=== PATIENT | male | born 1970 | race Caucasian/White ===

== ENCOUNTER → 2020-11-25 09:38 | Outpatient (CLI) | payer OTHER, SELFPAY ==
[2020-11-25] MEDS: COVID-19 VACC #1, MRNA(MOD) 100 MCG/0.5 ML VIAL IM (09:42)
== END ==
PROVIDERS: Visit Provider Internal Medicine
DX: Z23 Encounter for immunization (principal)
CPT/HCPCS: 0011A; 91301

== ENCOUNTER → 2020-12-23 12:02 | Outpatient (CLI) | payer OTHER, SELFPAY ==
[2020-12-23] MEDS: COVID-19 VACC #2, MRNA(MOD) 100 MCG/0.5 ML VIAL IM (12:08)
== END ==
PROVIDERS: Visit Provider Internal Medicine
DX: Z23 Encounter for immunization (principal)
CPT/HCPCS: 0012A; 91301

== ENCOUNTER 2021-08-13 11:39 | Emergency (ER) | payer OTHER, SELFPAY ==
[2021-08-13] VITALS (11 sets, daily range): BP systolic 121–147; BP diastolic 86–99; PULSE 62–99; RESP 13–18; TEMP 36.6; O2SAT 95–98; BMI 25.8
--- NOTE | 2021-08-13 11:48 | DI.RAD.S_ITS ---
PROCEDURE: XR CHEST 1V INDICATIONS: chest pain TECHNIQUE: One view of the chest was acquired. COMPARISON: None. FINDINGS: Surgical changes and devices: None. Lungs and pleura: Lungs are clear. No pleural effusions or pneumothorax. Mediastinum: Mediastinal contours appear normal. Heart size is normal. Bones and chest wall: No suspicious bony lesions. Overlying soft tissues appear unremarkable. IMPRESSION: No acute cardiopulmonary abnormality. Dictated by: Dillon Collins M.D. on 08/13/2021 at 12:13 Approved by: Dillon Collins M.D. on 08/13/2021 at 12:15
[2021-08-13 12:17] LABS: Add Manual Diff / Slide Review NO; Basophils Absolute Auto 100 /uL (0-100); Basophils Percent Auto 1.1 % (0-2); Eosinophils Absolute Auto 100 /uL (0-450); Eosinophils Percent Auto 2.4 % (2-4); Hematocrit 45.4 % (41-53); Hemoglobin 15.9 g/dL (13.5-17.5); Lymphocytes Absolute Auto 1000 /uL (1100-4500); Lymphocytes Percent Auto 20.7 % (25-40); Mean Corpuscular HGB Conc 35.1 % (30-36); Mean Corpuscular Volume 94.1 fL (80-100); Monocytes Absolute Auto 300 /uL (0-900); Monocytes Percent Auto 7.2 % (3-14); Neutrophils Absolute Auto 3200 /uL (1500-7000); Neutrophils Percent Auto 68.6 % (50-75); Platelet Count 224 X10^3/uL (150-400); Red Blood Cell Count 4.82 X10^6/uL (4.5-5.9); Red Cell Distribution Width 12.5 % (11.6-14.8); White Blood Cell Count 4.7 X10^3/uL (4.5-11.0)
[2021-08-13 12:26] LABS: Alanine Aminotransferase 29 IU/L (<50); Albumin 4.7 g/dL (3.5-5.0); Albumin Globulin Ratio 1.7 (1.0-2.8); Alkaline Phosphatase 72 U/L (38-126); Aspartate Aminotransferase 30 IU/L (17-59); BUN Creatinine Ratio 16.4 (6-22); Bilirubin Total 0.5 mg/dL (0.2-1.3); Blood Urea Nitrogen 12 mg/dL (9-20); Calcium 9.7 mg/dL (8.4-10.2); Carbon Dioxide 24 mmol/L (22-32); Chloride 105 mmol/L (98-107); Creatine Kinase 68 U/L (55-170); Estimated Glomerular Filt Rate > 60.0 mL/min (>60); Globulin 2.7 g/dL (1.7-4.1); Glucose 116 mg/dL (70-100); HEMOLYSIS < 15 (0-50); Lipase 121 U/L (23-300); Potassium 4.4 mmol/L (3.4-5.1); Sodium 139 mmol/L (137-145); Total Protein 7.4 g/dL (6.3-8.2)
[2021-08-13 12:37] LABS: Troponin I < 0.012 ng/mL (0.01-0.034)
--- NOTE | 2021-08-13 17:10 | ED_ITS ---
HPI - Chest Pain General Chief Complaint: Chest Pain Stated Complaint: CHEST PAIN/TIGHTNESS/SOB Time Seen by Provider: 08/13/21 17:10 Source: patient Mode of arrival: Ambulatory Limitations: no limitations History of Present Illness HPI narrative: 51-year-old gentleman pack-a-day smoker with PTSD but no additional medical history presents after an episode of chest pain this morning. States that he was talking with [facility], there the providers helping him with his PTSD, a bit anxious about some upcoming workup plans traveling to [place] and notes increasing psychosocial stressors over the last week or so. Was walking in his living room when he had the acute onset of substernal chest tightness not associated with numbness tingling left arm pain jaw pain dyspnea or diaphoresis. It lasted approximately 10 minutes and resolved. He had a cousin who was recently diagnosed with multivessel cardiac disease with similar finding so he came in for further reassurance. He has had no recurrence of symptoms since being in the emergency department. He does note he has been more anxious recently he has been having increasing diarrhea that he attributes to the anxiety and issues surrounding his PTSD. He has not had specific abdominal pain, vomiting, headaches, acute neurologic findings. Despite smoking a pack-a-day is no specific cough or wheeze and he denies any recent fevers. Related Data Allergies Allergy/AdvReac Type Severity Reaction Status Date / Time No Known Drug Allergies Allergy Verified 08/13/21 11:46 Review of Systems Review of Systems Narrative: Remainder of complete review of systems is otherwise unremarkable except for that included in the HPI. Patient History Medical History PTSD (post-traumatic stress disorder) Smoker Social History Smoking Status: Unknown if ever smoked Smoking Status: Unknown if ever smoked alcohol intake frequency: a few times a week Substance Use Type: does not use Exam Narrative Exam Narrative: General: Healthy appearing, in no acute distress. Able to give a complete and coherent history. Well-nourished well-developed HEENT: Moist mucous membranes, normal sclera with reactive pupils, Neck: No JVD, supple Respiratory: Lungs are clear to auscultation, no wheezing no rales no rhonchi. Full and symmetrical air movement Cardiac: Regular rate and rhythm no murmurs no bruits Abdomen: Soft, nontender, good bowel tones, no flank pain Skin: Warm and dry, no rashes Neurologic: Grossly neurologically intact with no obvious asymmetries or abnormalities Extremities: No trauma, well perfused Psych: Cooperative, appropriate insight and affect Initial Vital Signs Initial Vital Signs: Vital Signs Temperature 97.8 F 08/13/21 11:43 Pulse Rate 99 H 08/13/21 11:43 Respiratory Rate 14 08/13/21 11:43 Blood Pressure 147/94 H 08/13/21 11:43 Pulse Oximetry 98 08/13/21 11:43 Course Orders Ordered: ED Orders 08/13/21 11:48 XR chest 1V Stat EKG-12 Lead Stat 08/13/21 11:53 Complete Blood Count AUTO DIFF Stat Comprehensive Metabolic Panel Stat Lipase Stat Troponin & CK Cardiac Panel Stat Vital Signs Vital signs: Vital Signs - 8 hr 08/13/21 11:43 08/13/21 14:27 08/13/21 14:28 Temperature 97.8 F Pulse Rate 99 H 65 64 Respiratory Rate 14 18 13 Blood Pressure 147/94 H 134/90 Pulse Oximetry 98 95 96 08/13/21 14:30 08/13/21 15:00 08/13/21 15:20 Temperature Pulse Rate 65 65 Respiratory Rate 13 15 Blood Pressure 137/99 H Pulse Oximetry 96 95 08/13/21 15:30 08/13/21 15:34 08/13/21 16:00 Temperature Pulse Rate 65 68 62 Respiratory Rate 18 14 15 Blood Pressure 137/99 H 129/89 Pulse Oximetry 95 96 96 08/13/21 16:30 Temperature Pulse Rate 62 Respiratory Rate 14 Blood Pressure 121/86 Pulse Oximetry 96 MDM - Chest Pain Lab Data Result diagrams: 08/13/21 11:53 08/13/21 11:53 Labs: Lab Results 08/13/21 08/13/21 Range/Units 11:53 11:53 WBC 4.7 (4.5-11.0) X10^3/uL RBC 4.82 (4.5-5.9) X10^6/uL Hgb 15.9 (13.5-17.5) g/dL Hct 45.4 (41-53) % MCV 94.1 (80-100) fL MCH 33.0 (26-34) PG MCHC 35.1 (30-36) % RDW 12.5 (11.6-14.8) % Plt Count 224 (150-400) X10^3/uL Neut % (Auto) 68.6 (50-75) % Lymph % (Auto) 20.7 L (25-40) % Wood % (Auto) 7.2 (3-14) % Eos % (Auto) 2.4 (2-4) % Baso % (Auto) 1.1 (0-2) % Neut # (Auto) 3200 (5891-9178) /uL Lymph # (Auto) 1000 L (4905-0433) /uL Wood # (Auto) 300 (0-900) /uL Eos # (Auto) 100 (0-450) /uL Baso # (Auto) 100 (0-100) /uL Sodium 139 (137-145) mmol/L Potassium 4.4 (3.4-5.1) mmol/L Chloride 105 (98-107) mmol/L Carbon Dioxide 24 (22-32) mmol/L BUN 12 (9-20) mg/dL Creatinine 0.73 (0.66-1.25) mg/dL Estimated GFR > 60.0 (>60) mL/min BUN/Creatinine Ratio 16.4 (6-22) Glucose 116 H (70-100) mg/dL Calcium 9.7 (8.4-10.2) mg/dL Total Bilirubin 0.5 (0.2-1.3) mg/dL AST 30 (17-59) IU/L ALT 29 (<50) IU/L Alkaline Phosphatase 72 (38-126) U/L Total Creatine Kinase 68 (55-170) U/L CK-MB (CK-2) TNP CK-MB (CK-2) Rel Index TNP Troponin I < 0.012 (0.01-0.034) ng/mL Total Protein 7.4 (6.3-8.2) g/dL Albumin 4.7 (3.5-5.0) g/dL Globulin 2.7 (1.7-4.1) g/dL Albumin/Globulin Ratio 1.7 (1.0-2.8) Lipase 121 (23-300) U/L ECG Data Interpretation: FINDINGS:? ? Surgical changes and devices:? None.? ? Lungs and pleura:? Lungs are clear.? No pleural effusions or pneumothorax.? ? Mediastinum:? Mediastinal contours appear normal.? Heart size is normal.? ? Bones and chest wall:? No suspicious bony lesions.? Overlying soft tissues appear unremarkable.? ? IMPRESSION:? No acute cardiopulmonary abnormality. ? ? Dictated by: Dillon Collins M.D. on 08/13/2021 at 12:13? ?? [facility] Narrative Medical decision making narrative: 51-year-old gentleman presents with 10-15 minutes of substernal chest pain associated with chest tightness. Workup today is entirely unremarkable for acute coronary syndrome. Chest x-ray is reassuring. No evidence of infectious etiology, pneumothorax or pleuritic chest pain. He does note that his PTSD has been more of an issue as he is working with his [facility], increased stressors recently with work plans that are developing positively but the require some more effort. He feels that this is most likely a panic attack after having plenty of time in the emergency department to do a bit of googling. At this time, I agree with him. His heart score is low. Symptoms have entirely resolved. We did discuss smoking a pack-a-day is a significant risk factor for progressing to true coronary disease. He has appropriate follow-up care as an outpatient scheduled and is safe for home discharge Discharge Plan Departure Patient Disposition: Home Clinical Impression: Atypical chest pain Instructions: DI for Atypical Chest Pain, DI for Panic Disorder Activity Restrictions/Additional Instructions: Thank you for coming in today Your cardiac workup was very reassuring. Chest x-ray, EKG, blood work and exam all suggest that the pain you experienced today was not heart attack. Smoking is a significant risk factor for developing true heart disease and I strongly recommend that you stop I suspect that you are correct that your anxiety precipitated a panic attack and that is the underlying cause of the pain you experienced today. Please do continue to work with your [place] doctors and I wish you the best in learning some coping skills to best manage your stress and anxiety. If you have worsening symptoms particularly chest pain that is associated with any radiation down the arm up to the neck, nauseated or sweating you do need to come in for further evaluation I hope you enjoyed [place]!
== END 2021-08-13 17:37 | disposition home or self-care (01) ==
PROVIDERS: Emergency Provider Emergency Medicine
DX: R07.89 Other chest pain (principal); F43.10 Post-traumatic stress disorder, unspecified
CPT/HCPCS: 36415; 71045; 80053; 82550; 83690; 84484; 85025; 93005; 93010; 99283; 99284

== ENCOUNTER 2023-01-16 05:46 | Emergency (ER) | payer OTHER, SELFPAY ==
[2023-01-16] VITALS (59 sets, daily range): BP systolic 127–188; BP diastolic 68–115; PULSE 69–92; RESP 10–51; O2SAT 90–100; BMI 23.6
--- NOTE | 2023-01-16 05:56 | ED_ITS ---
HPI - Chest Pain <Viktor Dhillon, DO - Last Filed: 01/16/23 12:06> General Chief Complaint: Chest Pain Stated Complaint: chest pain Time Seen by Provider: 01/16/23 05:56 Related Data Allergies Allergy/AdvReac Type Severity Reaction Status Date / Time No Known Drug Allergies Allergy Verified 08/13/21 11:46 <Arturo Hodge, DO - Last Filed: 01/17/23 14:18> General Source: patient Mode of arrival: Ambulatory History of Present Illness HPI narrative: 52-year-old male smoker without any significant chronic medical history presents with his father and a chief complaint of a sudden onset retrosternal chest pain that woke him from sleep 15 minutes prior to his arrival. He states that he had been in his normal state of health until awoken with this pain. He states he has never had such significant pain and rates it 10/10 with radiation to his back. He states there is no obvious provocation or palliation and the pain had improved on its own while getting registered and when brought into the room he rates it as a 3 or 4 When the pain was at its most intense he had some nausea but otherwise denies other cardiac equivalent such as dizziness, weakness or lightheadedness. He is had no unexplained diaphoresis and denies any exertional symptoms. He states he is had no exercise intolerance and denies any history of the same. He denies recent travel, trauma or injury, history of blood clot or known cancer. He denies any cough or hemoptysis. He has had no lower extremity pain or swelling. There is no known cardiac history in his family. <Arturo Naveen, DO - Last Filed: 01/17/23 14:18> Review of Systems Narrative: GENERAL: Denies chills, fatigue, malaise, fever, sweats. HEENT: Denies sinus pain, ear pain, sore throat, difficulty swallowing, dizziness. RESPIRATORY: Denies dyspnea, cough, wheezing, hemoptysis, sputum. CARDIOVASCULAR: See HPI GASTROINTESTINAL: Denies nausea, vomiting, abdominal pain, diarrhea, constipation, melena. : Denies dysuria, frequency, incontinence, hematuria, urinary retention. MUSCULOSKELETAL: denies weakness, joint pain, or bony pain SKIN: Denies rash, skin lesions, or other NEUROLOGIC: Denies weakness, headache, numbness, change in speech, confusion, seizures, incoordination. PSYCHIATRIC: No concerning psychosocial issues. 12 point review of systems is negative except for those stated above Patient History <Viktor Dhillon DO - Last Filed: 01/16/23 12:06> Medical History PTSD (post-traumatic stress disorder) Smoker Social History Smoking Status: Current every day smoker <Arturo Hodge DO - Last Filed: 01/17/23 14:18> Smoking Status: Current every day smoker alcohol intake frequency: a few times a week Substance Use Type: does not use Exam <Viktor Dhillon DO - Last Filed: 01/16/23 12:06> Initial Vital Signs Initial Vital Signs: Vital Signs Pulse Rate 77 01/16/23 05:50 Respiratory Rate 37 H 01/16/23 05:50 Pulse Oximetry 100 01/16/23 05:50 <Arturo Hodge DO - Last Filed: 01/17/23 14:18> Narrative Exam Narrative: GENERAL: [52] year old patient appears stated age. Well-developed patient, in mild distress. HEAD: Atraumatic. Normocephalic. EYES: Pupils equal round and reactive. Extraocular motions intact. No scleral icterus. No injection or drainage. ENT: Nose without bleeding, purulent drainage. Throat without erythema, tonsillar hypertrophy or exudate. Airway patent. NECK: Trachea midline. Non tender CARDIOVASCULAR: Regular rate and rhythm without murmurs, gallops, or rubs. No reproducible pain on palpation of chest, upper abdomen or use of upper extremities RESPIRATORY: Clear to auscultation. Breath sounds equal bilaterally. No wheezes, rales, or rhonchi. GASTROINTESTINAL: Abdomen soft, non-tender, nondistended. EXTREMITIES: No edema or joint tenderness. BACK: Nontender without deformity or crepitance. No flank tenderness. NEURO: AOx3. SKIN: No rash or erythema of visible areas Initial Vital Signs Initial Vital Signs: Vital Signs Pulse Rate 77 01/16/23 05:50 Respiratory Rate 37 H 01/16/23 05:50 Pulse Oximetry 100 01/16/23 05:50 Course <DO Chapito Vu Last Filed: 01/16/23 12:06> Orders Ordered: Discontinued Medications Aspirin (Aspirin 81 Mg Chew Tab) 324 mg PO NOW ONE Stop: 01/16/23 05:57 Last Admin: 01/16/23 06:14 Dose: 324 mg Documented By: LUCY Heparin Sodium (Porcine) (Heparin 5,000 Unit/Ml Vial) 5,000 unit IV NOW ONE Stop: 01/16/23 07:04 Last Admin: 01/16/23 07:46 Dose: 5,000 unit Documented By: NO Sodium Chloride (Normal Saline 0.9%) 1,000 mls @ 1,000 mls/hr IV BOLUS ONE Stop: 01/16/23 06:55 Last Infusion: 01/16/23 07:59 Dose: 0 mls/hr Documented By: Admin: 01/16/23 06:14 Dose: 1,000 mls/hr Documented By: LUCY Heparin Sodium/Dextrose (Heparin Drip) 25,000 unit in 500 mls @ 20 mls/hr IV CONT CRISTHIAN; Protocol Last Titration: 01/16/23 12:00 Dose: 0 units/hr, 0 mls/hr Documented By: Admin: 01/16/23 07:46 Dose: 1,000 units/hr, 20 mls/hr Documented By: NO Morphine Sulfate (Morphine 4 Mg/Ml Inj) 4 mg IV NOW ONE Stop: 01/16/23 06:47 Last Admin: 01/16/23 06:50 Dose: 4 mg Documented By: LARRY Morphine Sulfate (Morphine 4 Mg/Ml Inj) 4 mg IV NOW ONE Stop: 01/16/23 07:41 Last Admin: 01/16/23 07:55 Dose: 4 mg Documented By: NO Nitroglycerin (Nitroglycerin 0.4 Mg Sl Tab) 0.4 mg SL [id number] PRN PRN Reason: Chest Pain Last Admin: 01/16/23 06:34 Dose: 0.4 mg Documented By: Admin: 01/16/23 06:14 Dose: 0.4 mg Documented By: LUCY Ondansetron HCl (Ondansetron 4 Mg/2 Ml Inj) 4 mg IV NOW ONE Stop: 01/16/23 07:36 Last Admin: 01/16/23 07:38 Dose: 4 mg Documented By: NO Ondansetron HCl (Ondansetron 4 Mg/2 Ml Inj) 4 mg IV NOW ONE Stop: 01/16/23 07:41 Last Admin: 01/16/23 10:20 Dose: Not Given Documented By: AT Vital Signs Vital signs: Vital Signs - 8 hr 01/16/23 05:51 01/16/23 06:14 01/16/23 06:34 Pulse Rate 78 72 80 Respiratory Rate 30 H Blood Pressure 157/90 H 182/112 H 155/89 H Pulse Oximetry 100 Oxygen Delivery Method Room Air Oxygen Flow Rate 01/16/23 05:50 01/16/23 06:00 01/16/23 06:00 Pulse Rate 77 77 Respiratory Rate 37 H 32 H Blood Pressure 182/115 H Pulse Oximetry 100 99 Oxygen Delivery Method Oxygen Flow Rate 01/16/23 06:20 01/16/23 06:20 01/16/23 06:35 Pulse Rate 71 83 Respiratory Rate 10 L 29 H Blood Pressure 156/107 H Pulse Oximetry 96 95 Oxygen Delivery Method Oxygen Flow Rate 01/16/23 06:36 01/16/23 06:36 01/16/23 06:40 Pulse Rate 80 77 Respiratory Rate 28 H 14 Blood Pressure 155/89 H Pulse Oximetry 96 96 Oxygen Delivery Method Oxygen Flow Rate 01/16/23 06:40 01/16/23 06:45 01/16/23 06:45 Pulse Rate 86 Respiratory Rate 51 H Blood Pressure 149/87 H 169/106 H Pulse Oximetry 99 Oxygen Delivery Method Oxygen Flow Rate 01/16/23 06:50 01/16/23 06:50 01/16/23 08:30 Pulse Rate 79 Respiratory Rate 34 H Blood Pressure 148/87 H Pulse Oximetry 98 99 Oxygen Delivery Method Nasal Cannula Oxygen Flow Rate 2 01/16/23 06:55 01/16/23 06:55 01/16/23 07:00 Pulse Rate 77 Respiratory Rate 34 H Blood Pressure 145/87 H 143/77 H Pulse Oximetry 98 Oxygen Delivery Method Oxygen Flow Rate 01/16/23 07:00 01/16/23 07:05 01/16/23 07:05 Pulse Rate 69 70 Respiratory Rate 14 28 H Blood Pressure 146/81 H Pulse Oximetry 94 95 Oxygen Delivery Method Oxygen Flow Rate 01/16/23 07:11 01/16/23 07:11 01/16/23 07:16 Pulse Rate 76 Respiratory Rate 14 Blood Pressure 138/81 160/102 H Pulse Oximetry 94 Oxygen Delivery Method Oxygen Flow Rate 01/16/23 07:16 01/16/23 07:20 01/16/23 07:20 Pulse Rate 75 78 Respiratory Rate 42 H 44 H Blood Pressure 188/103 H Pulse Oximetry 98 99 Oxygen Delivery Method Oxygen Flow Rate 01/16/23 07:25 01/16/23 07:25 01/16/23 07:30 Pulse Rate 82 81 Respiratory Rate 35 H 36 H Blood Pressure 186/112 H Pulse Oximetry 99 98 Oxygen Delivery Method Oxygen Flow Rate 01/16/23 07:31 01/16/23 07:31 01/16/23 07:36 Pulse Rate 81 Respiratory Rate 45 H Blood Pressure 166/83 H 172/110 H Pulse Oximetry 98 Oxygen Delivery Method Oxygen Flow Rate 01/16/23 07:36 01/16/23 07:41 01/16/23 07:41 Pulse Rate 82 78 Respiratory Rate 48 H 32 H Blood Pressure 175/105 H Pulse Oximetry 98 99 Oxygen Delivery Method Oxygen Flow Rate 01/16/23 07:45 01/16/23 07:45 01/16/23 07:50 Pulse Rate 69 Respiratory Rate 17 Blood Pressure 156/78 H 158/89 H Pulse Oximetry 96 Oxygen Delivery Method Oxygen Flow Rate 01/16/23 07:50 01/16/23 07:55 01/16/23 07:55 Pulse Rate 71 70 Respiratory Rate 29 H 14 Blood Pressure 156/89 H Pulse Oximetry 96 94 Oxygen Delivery Method Oxygen Flow Rate 01/16/23 08:00 01/16/23 08:23 01/16/23 08:23 Pulse Rate 78 85 Respiratory Rate 17 16 Blood Pressure 145/80 H Pulse Oximetry 94 95 Oxygen Delivery Method Oxygen Flow Rate 01/16/23 08:25 01/16/23 08:25 01/16/23 08:30 Pulse Rate 77 Respiratory Rate 18 Blood Pressure 138/77 146/89 H Pulse Oximetry 97 Oxygen Delivery Method Oxygen Flow Rate 01/16/23 08:30 01/16/23 08:35 01/16/23 08:35 Pulse Rate 82 84 Respiratory Rate 20 19 Blood Pressure 147/94 H Pulse Oximetry 95 96 Oxygen Delivery Method Nasal Cannula Oxygen Flow Rate 2 01/16/23 08:40 01/16/23 08:40 01/16/23 08:45 Pulse Rate 81 82 Respiratory Rate 19 13 Blood Pressure 135/83 Pulse Oximetry 95 96 Oxygen Delivery Method Oxygen Flow Rate 01/16/23 08:45 01/16/23 08:50 01/16/23 08:50 Pulse Rate 84 Respiratory Rate 13 Blood Pressure 129/81 140/81 Pulse Oximetry 96 Oxygen Delivery Method Oxygen Flow Rate 01/16/23 08:55 01/16/23 08:55 01/16/23 09:00 Pulse Rate 85 Respiratory Rate 14 Blood Pressure 135/76 128/73 Pulse Oximetry 96 Oxygen Delivery Method Oxygen Flow Rate 01/16/23 09:00 01/16/23 09:05 01/16/23 09:05 Pulse Rate 86 84 Respiratory Rate 17 11 L Blood Pressure 130/73 Pulse Oximetry 95 96 Oxygen Delivery Method Oxygen Flow Rate 01/16/23 09:10 01/16/23 09:10 01/16/23 09:15 Pulse Rate 84 86 Respiratory Rate 12 13 Blood Pressure 141/79 H Pulse Oximetry 96 96 Oxygen Delivery Method Nasal Cannula Oxygen Flow Rate 2 01/16/23 09:15 01/16/23 09:20 01/16/23 09:20 Pulse Rate 84 Respiratory Rate 13 Blood Pressure 133/79 134/77 Pulse Oximetry 96 Oxygen Delivery Method Oxygen Flow Rate 01/16/23 09:25 01/16/23 09:25 01/16/23 09:30 Pulse Rate 84 Respiratory Rate 15 Blood Pressure 135/78 138/80 Pulse Oximetry 96 Oxygen Delivery Method Oxygen Flow Rate 01/16/23 09:30 01/16/23 09:35 01/16/23 09:35 Pulse Rate 82 88 Respiratory Rate 11 L Blood Pressure 131/68 Pulse Oximetry 97 96 Oxygen Delivery Method Oxygen Flow Rate 01/16/23 10:00 01/16/23 10:30 01/16/23 10:47 Pulse Rate 87 85 Respiratory Rate 21 12 Blood Pressure 140/102 H Pulse Oximetry 97 97 Oxygen Delivery Method Nasal Cannula Room Air Oxygen Flow Rate 2 01/16/23 10:47 01/16/23 10:50 01/16/23 10:50 Pulse Rate 87 85 Respiratory Rate 25 H 22 Blood Pressure 141/105 H Pulse Oximetry 93 94 Oxygen Delivery Method Room Air Oxygen Flow Rate 01/16/23 10:55 01/16/23 10:55 01/16/23 11:00 Pulse Rate 84 Respiratory Rate 16 Blood Pressure 133/90 133/96 H Pulse Oximetry 93 Oxygen Delivery Method Oxygen Flow Rate 01/16/23 11:00 01/16/23 11:05 01/16/23 11:05 Pulse Rate 87 82 Respiratory Rate 23 12 Blood Pressure 127/76 Pulse Oximetry 94 94 Oxygen Delivery Method Oxygen Flow Rate 01/16/23 11:10 01/16/23 11:10 01/16/23 11:15 Pulse Rate 86 92 H Respiratory Rate 19 19 Blood Pressure 133/79 Pulse Oximetry 94 93 Oxygen Delivery Method Oxygen Flow Rate 01/16/23 11:15 01/16/23 11:20 01/16/23 11:20 Pulse Rate 84 Respiratory Rate 13 Blood Pressure 165/100 H 153/90 H Pulse Oximetry 92 Oxygen Delivery Method Oxygen Flow Rate 01/16/23 11:25 01/16/23 11:25 Pulse Rate 85 Respiratory Rate 13 Blood Pressure 149/98 H Pulse Oximetry 93 Oxygen Delivery Method Oxygen Flow Rate <Arturo Hodge DO - Last Filed: 01/17/23 14:18> Orders Ordered: Discontinued Medications Aspirin (Aspirin 81 Mg Chew Tab) 324 mg PO NOW ONE Stop: 01/16/23 05:57 Last Admin: 01/16/23 06:14 Dose: 324 mg Documented By: LUCY Heparin Sodium (Porcine) (Heparin 5,000 Unit/Ml Vial) 5,000 unit IV NOW ONE Stop: 01/16/23 07:04 Last Admin: 01/16/23 07:46 Dose: 5,000 unit Documented By: NO Sodium Chloride (Normal Saline 0.9%) 1,000 mls @ 1,000 mls/hr IV BOLUS ONE Stop: 01/16/23 06:55 Last Infusion: 01/16/23 07:59 Dose: 0 mls/hr Documented By: Admin: 01/16/23 06:14 Dose: 1,000 mls/hr Documented By: LUCY Heparin Sodium/Dextrose (Heparin Drip) 25,000 unit in 500 mls @ 20 mls/hr IV CONT CRISTHIAN; Protocol Last Titration: 01/16/23 12:00 Dose: 0 units/hr, 0 mls/hr Documented By: Admin: 01/16/23 07:46 Dose: 1,000 units/hr, 20 mls/hr Documented By: NO Morphine Sulfate (Morphine 4 Mg/Ml Inj) 4 mg IV NOW ONE Stop: 01/16/23 06:47 Last Admin: 01/16/23 06:50 Dose: 4 mg Documented By: LARRY Morphine Sulfate (Morphine 4 Mg/Ml Inj) 4 mg IV NOW ONE Stop: 01/16/23 07:41 Last Admin: 01/16/23 07:55 Dose: 4 mg Documented By: NO Nitroglycerin (Nitroglycerin 0.4 Mg Sl Tab) 0.4 mg SL [id number] PRN PRN Reason: Chest Pain Last Admin: 01/16/23 06:34 Dose: 0.4 mg Documented By: Admin: 01/16/23 06:14 Dose: 0.4 mg Documented By: LUCY Ondansetron HCl (Ondansetron 4 Mg/2 Ml Inj) 4 mg IV NOW ONE Stop: 01/16/23 07:36 Last Admin: 01/16/23 07:38 Dose: 4 mg Documented By: NO Ondansetron HCl (Ondansetron 4 Mg/2 Ml Inj) 4 mg IV NOW ONE Stop: 01/16/23 07:41 Last Admin: 01/16/23 10:20 Dose: Not Given Documented By: AT Reevaluation(s) Reevaluation #1: Is unclear if patient had any improvement with nitroglycerin, soon after returning from CT scan his pain became very severe again without obvious provocation. Repeat EKG ordered Vital Signs Vital signs: Vital Signs - 8 hr 01/16/23 05:51 01/16/23 06:14 01/16/23 06:34 Pulse Rate 78 72 80 Respiratory Rate 30 H Blood Pressure 157/90 H 182/112 H 155/89 H Pulse Oximetry 100 Oxygen Delivery Method Room Air Oxygen Flow Rate 01/16/23 05:50 01/16/23 06:00 01/16/23 06:00 Pulse Rate 77 77 Respiratory Rate 37 H 32 H Blood Pressure 182/115 H Pulse Oximetry 100 99 Oxygen Delivery Method Oxygen Flow Rate 01/16/23 06:20 01/16/23 06:20 01/16/23 06:35 Pulse Rate 71 83 Respiratory Rate 10 L 29 H Blood Pressure 156/107 H Pulse Oximetry 96 95 Oxygen Delivery Method Oxygen Flow Rate 01/16/23 06:36 01/16/23 06:36 01/16/23 06:40 Pulse Rate 80 77 Respiratory Rate 28 H 14 Blood Pressure 155/89 H Pulse Oximetry 96 96 Oxygen Delivery Method Oxygen Flow Rate 01/16/23 06:40 01/16/23 06:45 01/16/23 06:45 Pulse Rate 86 Respiratory Rate 51 H Blood Pressure 149/87 H 169/106 H Pulse Oximetry 99 Oxygen Delivery Method Oxygen Flow Rate 01/16/23 06:50 01/16/23 06:50 01/16/23 08:30 Pulse Rate 79 Respiratory Rate 34 H Blood Pressure 148/87 H Pulse Oximetry 98 99 Oxygen Delivery Method Nasal Cannula Oxygen Flow Rate 2 01/16/23 06:55 01/16/23 06:55 01/16/23 07:00 Pulse Rate 77 Respiratory Rate 34 H Blood Pressure 145/87 H 143/77 H Pulse Oximetry 98 Oxygen Delivery Method Oxygen Flow Rate 01/16/23 07:00 01/16/23 07:05 01/16/23 07:05 Pulse Rate 69 70 Respiratory Rate 14 28 H Blood Pressure 146/81 H Pulse Oximetry 94 95 Oxygen Delivery Method Oxygen Flow Rate 01/16/23 07:11 01/16/23 07:11 01/16/23 07:16 Pulse Rate 76 Respiratory Rate 14 Blood Pressure 138/81 160/102 H Pulse Oximetry 94 Oxygen Delivery Method Oxygen Flow Rate 01/16/23 07:16 01/16/23 07:20 01/16/23 07:20 Pulse Rate 75 78 Respiratory Rate 42 H 44 H Blood Pressure 188/103 H Pulse Oximetry 98 99 Oxygen Delivery Method Oxygen Flow Rate 01/16/23 07:25 01/16/23 07:25 01/16/23 07:30 Pulse Rate 82 81 Respiratory Rate 35 H 36 H Blood Pressure 186/112 H Pulse Oximetry 99 98 Oxygen Delivery Method Oxygen Flow Rate 01/16/23 07:31 01/16/23 07:31 01/16/23 07:36 Pulse Rate 81 Respiratory Rate 45 H Blood Pressure 166/83 H 172/110 H Pulse Oximetry 98 Oxygen Delivery Method Oxygen Flow Rate 01/16/23 07:36 01/16/23 07:41 01/16/23 07:41 Pulse Rate 82 78 Respiratory Rate 48 H 32 H Blood Pressure 175/105 H Pulse Oximetry 98 99 Oxygen Delivery Method Oxygen Flow Rate 01/16/23 07:45 01/16/23 07:45 01/16/23 07:50 Pulse Rate 69 Respiratory Rate 17 Blood Pressure 156/78 H 158/89 H Pulse Oximetry 96 Oxygen Delivery Method Oxygen Flow Rate 01/16/23 07:50 01/16/23 07:55 01/16/23 07:55 Pulse Rate 71 70 Respiratory Rate 29 H 14 Blood Pressure 156/89 H Pulse Oximetry 96 94 Oxygen Delivery Method Oxygen Flow Rate 01/16/23 08:00 01/16/23 08:23 01/16/23 08:23 Pulse Rate 78 85 Respiratory Rate 17 16 Blood Pressure 145/80 H Pulse Oximetry 94 95 Oxygen Delivery Method Oxygen Flow Rate 01/16/23 08:25 01/16/23 08:25 01/16/23 08:30 Pulse Rate 77 Respiratory Rate 18 Blood Pressure 138/77 146/89 H Pulse Oximetry 97 Oxygen Delivery Method Oxygen Flow Rate 01/16/23 08:30 01/16/23 08:35 01/16/23 08:35 Pulse Rate 82 84 Respiratory Rate 20 19 Blood Pressure 147/94 H Pulse Oximetry 95 96 Oxygen Delivery Method Nasal Cannula Oxygen Flow Rate 2 01/16/23 08:40 01/16/23 08:40 01/16/23 08:45 Pulse Rate 81 82 Respiratory Rate 19 13 Blood Pressure 135/83 Pulse Oximetry 95 96 Oxygen Delivery Method Oxygen Flow Rate 01/16/23 08:45 01/16/23 08:50 01/16/23 08:50 Pulse Rate 84 Respiratory Rate 13 Blood Pressure 129/81 140/81 Pulse Oximetry 96 Oxygen Delivery Method Oxygen Flow Rate 01/16/23 08:55 01/16/23 08:55 01/16/23 09:00 Pulse Rate 85 Respiratory Rate 14 Blood Pressure 135/76 128/73 Pulse Oximetry 96 Oxygen Delivery Method Oxygen Flow Rate 01/16/23 09:00 01/16/23 09:05 01/16/23 09:05 Pulse Rate 86 84 Respiratory Rate 17 11 L Blood Pressure 130/73 Pulse Oximetry 95 96 Oxygen Delivery Method Oxygen Flow Rate 01/16/23 09:10 01/16/23 09:10 01/16/23 09:15 Pulse Rate 84 86 Respiratory Rate 12 13 Blood Pressure 141/79 H Pulse Oximetry 96 96 Oxygen Delivery Method Nasal Cannula Oxygen Flow Rate 2 01/16/23 09:15 01/16/23 09:20 01/16/23 09:20 Pulse Rate 84 Respiratory Rate 13 Blood Pressure 133/79 134/77 Pulse Oximetry 96 Oxygen Delivery Method Oxygen Flow Rate 01/16/23 09:25 01/16/23 09:25 01/16/23 09:30 Pulse Rate 84 Respiratory Rate 15 Blood Pressure 135/78 138/80 Pulse Oximetry 96 Oxygen Delivery Method Oxygen Flow Rate 01/16/23 09:30 01/16/23 09:35 01/16/23 09:35 Pulse Rate 82 88 Respiratory Rate 11 L Blood Pressure 131/68 Pulse Oximetry 97 96 Oxygen Delivery Method Oxygen Flow Rate 01/16/23 10:00 01/16/23 10:30 01/16/23 10:47 Pulse Rate 87 85 Respiratory Rate 21 12 Blood Pressure 140/102 H Pulse Oximetry 97 97 Oxygen Delivery Method Nasal Cannula Room Air Oxygen Flow Rate 2 01/16/23 10:47 01/16/23 10:50 01/16/23 10:50 Pulse Rate 87 85 Respiratory Rate 25 H 22 Blood Pressure 141/105 H Pulse Oximetry 93 94 Oxygen Delivery Method Room Air Oxygen Flow Rate 01/16/23 10:55 01/16/23 10:55 01/16/23 11:00 Pulse Rate 84 Respiratory Rate 16 Blood Pressure 133/90 133/96 H Pulse Oximetry 93 Oxygen Delivery Method Oxygen Flow Rate 01/16/23 11:00 01/16/23 11:05 01/16/23 11:05 Pulse Rate 87 82 Respiratory Rate 23 12 Blood Pressure 127/76 Pulse Oximetry 94 94 Oxygen Delivery Method Oxygen Flow Rate 01/16/23 11:10 01/16/23 11:10 01/16/23 11:15 Pulse Rate 86 92 H Respiratory Rate 19 19 Blood Pressure 133/79 Pulse Oximetry 94 93 Oxygen Delivery Method Oxygen Flow Rate 01/16/23 11:15 01/16/23 11:20 01/16/23 11:20 Pulse Rate 84 Respiratory Rate 13 Blood Pressure 165/100 H 153/90 H Pulse Oximetry 92 Oxygen Delivery Method Oxygen Flow Rate 01/16/23 11:25 01/16/23 11:25 Pulse Rate 85 Respiratory Rate 13 Blood Pressure 149/98 H Pulse Oximetry 93 Oxygen Delivery Method Oxygen Flow Rate MDM - Chest Pain <Viktor Dhillon, - Last Filed: 01/16/23 12:06> Lab Data Attestation: I reviewed the patient's lab results. 01/16/23 05:55 01/16/23 05:55 Labs: Lab Results 01/16/23 01/16/23 01/16/23 Range/Units 05:55 05:55 05:55 WBC 8.9 (4.5-11.0) X10^3/uL RBC 5.27 (4.5-5.9) X10^6/uL Hgb 17.0 (13.5-17.5) g/dL Hct 49.2 (41-53) % MCV 93.4 (80-100) fL MCH 32.3 (26-34) PG MCHC 34.6 (30-36) % RDW 13.1 (11.6-14.8) % Plt Count 215 (150-400) X10^3/uL Neut % (Auto) 64.2 (50-75) % Lymph % (Auto) 23.7 L (25-40) % [place] % (Auto) 7.2 (3-14) % Eos % (Auto) 4.0 (2-4) % Baso % (Auto) 0.9 (0-2) % Neut # (Auto) 5700 (3787-5642) /uL Lymph # (Auto) 2100 (6370-4031) /uL [place] # (Auto) 600 (0-900) /uL Eos # (Auto) 400 (0-450) /uL Baso # (Auto) 100 (0-100) /uL APTT (26-36) SECONDS D-Dimer 309 (<500) ng/ml Sodium 138 (137-145) mmol/L Potassium 4.1 (3.4-5.1) mmol/L Chloride 101 (98-107) mmol/L Carbon Dioxide 32 (22-32) mmol/L BUN 14 (9-20) mg/dL Creatinine 1.15 (0.66-1.25) mg/dL Estimated GFR > 60 (>60) mL/min BUN/Creatinine Ratio 12.2 (6-22) Glucose 120 H (70-100) mg/dL Calcium 9.2 (8.4-10.2) mg/dL Total Bilirubin 0.4 (0.2-1.3) mg/dL AST 38 (17-59) IU/L ALT 32 (<50) IU/L Alkaline Phosphatase 86 (38-126) U/L Total Creatine Kinase 213 H (55-170) U/L CK-MB (CK-2) 2.90 H (<2.37) ng/mL CK-MB (CK-2) Rel Index 1.4 L (1.5-5.0) % Troponin I 0.279 H* (0.01-0.034) ng/mL Total Protein 6.9 (6.3-8.2) g/dL Albumin 4.0 (3.5-5.0) g/dL Globulin 2.9 (1.7-4.1) g/dL Albumin/Globulin Ratio 1.4 (1.0-2.8) Lipase 433 H (23-300) U/L SARS-CoV-2 (PCR) (Negative) 01/16/23 01/16/23 01/16/23 Range/Units 05:55 07:40 10:00 WBC (4.5-11.0) X10^3/uL RBC (4.5-5.9) X10^6/uL Hgb (13.5-17.5) g/dL Hct (41-53) % MCV (80-100) fL MCH (26-34) PG MCHC (30-36) % RDW (11.6-14.8) % Plt Count (150-400) X10^3/uL Neut % (Auto) (50-75) % Lymph % (Auto) (25-40) % [place] % (Auto) (3-14) % Eos % (Auto) (2-4) % Baso % (Auto) (0-2) % Neut # (Auto) (9189-8618) /uL Lymph # (Auto) (2277-3981) /uL [place] # (Auto) (0-900) /uL Eos # (Auto) (0-450) /uL Baso # (Auto) (0-100) /uL APTT 31 (26-36) SECONDS D-Dimer (<500) ng/ml Sodium (137-145) mmol/L Potassium (3.4-5.1) mmol/L Chloride (98-107) mmol/L Carbon Dioxide (22-32) mmol/L BUN (9-20) mg/dL Creatinine (0.66-1.25) mg/dL Estimated GFR (>60) mL/min BUN/Creatinine Ratio (6-22) Glucose (70-100) mg/dL Calcium (8.4-10.2) mg/dL Total Bilirubin (0.2-1.3) mg/dL AST (17-59) IU/L ALT (<50) IU/L Alkaline Phosphatase (38-126) U/L Total Creatine Kinase 235 H (55-170) U/L CK-MB (CK-2) 3.83 H (<2.37) ng/mL CK-MB (CK-2) Rel Index 1.6 (1.5-5.0) % Troponin I 0.297 H* (0.01-0.034) ng/mL Total Protein (6.3-8.2) g/dL Albumin (3.5-5.0) g/dL Globulin (1.7-4.1) g/dL Albumin/Globulin Ratio (1.0-2.8) Lipase (23-300) U/L SARS-CoV-2 (PCR) Negative (Negative) Imaging Data Chest x-ray: Radiologist's Impression: PROCEDURE:? XR CHEST 1V ? INDICATIONS:? chest pain ? TECHNIQUE:? One view of the chest was acquired.? ? COMPARISON:? [facility], , XR CHEST 1V, 08/13/2021, 11:55. ? FINDINGS:? ? Surgical changes and devices:? None.? ? Lungs and pleura:? Lungs are clear.? No pleural effusions or pneumothorax.? ? Mediastinum:? Mediastinal contours appear normal.? Heart size is normal.? ? Bones and chest wall:? No suspicious bony lesions.? Overlying soft tissues geraldine ear unremarkable.? ? IMPRESSION:? No acute cardiopulmonary disease. ? ? No significant discrepancy with the material handler 1st shift radiology preliminary report. CT scan - chest: Radiologist's Impression: ADDENDUMCORRECTION Corrected on: 01/16/2023; ? ? PROCEDURE:? CT ANGIO CHEST ABDOMEN PELVIS ? INDICATIONS:? severe chest pain, radiation to the back ? TECHNIQUE:? Precontrast 5 mm thick sections acquired from the lung apices to the iliac crests.? After the administration of intravenous contrast, 2.5 mm thick sections again acquired from the lung apices to the iliac crests.? Maximum intensity projection (MIP) oblique sagittal and coronal reformats were then acquired.? For radiation dose reduction, the following was used:? automated exposure control.? ? COMPARISON:? None. ? FINDINGS: ? Image quality:? Excellent.? ? CHEST: Lungs and pleura:? No acute air space opacities.? No pleural effusions or pneumothorax.? Central and peripheral airways are patent and normal in caliber.? ? Mediastinum:? Heart size is normal.? <<No pericardial effusion.? >>No mediastinal adenopathy by size criteria.? Thoracic aorta and central pulmonary arteries are normal in size.? Esophagus is normal in caliber.? No hiatal hernia. ? Chest wall:? No axillary or supraclavicular adenopathy by size criteria.? Thyroid gland is normal .? ? ABDOMEN: Liver: The liver has no mass or intrahepatic biliary ductal dilatation. The portal vein and hepatic veins are patent. Biliary: The gallbladder has no gallstones, pericholecystic fluid, gallbladder wall thickening, or surrounding inflammatory change. Pancreas: The pancreas has no mass or ductal dilatation. There is no surrounding inflammation. Spleen: Normal size. There are no masses. Adrenals: No hypertrophy or nodules. Kidneys: No obstructive calculus or hydronephrosis.? No solid mass. No cystic mass. ? Bowel:? The distal esophagus and stomach are normal.? The small bowel has a normal caliber and appearance. The terminal ileum is normal. The large bowel has a normal caliber and appearance.? The appendix is normal. No free fluid or air.? <<>> ? Nodes and vessels:? <<No retroperitoneal or mesenteric adenopathy by size criteria.? >><<Aorta and inferior vena cava are normal in size.? >><<>> ? Abdominal wall:? <<No abdominal wall mass or hernia.>> ? PELVIS:? Genitourinary:? <<The bladder has no wall thickening or mass.>> <<No bladder calcifications.>> ? Bone:? <<No suspicious bony lesions.? >><<No vertebral body compression fractures.? >> ? IMPRESSION: 1. No acute intrathoracic abnormality.? Specifically there is no aortic aneurysm or dissection. 2. Mild diffuse bronchial wall thickening which can be seen in the setting of underlying reactive airway disease or asthma or bronchitis. ? Comment:? Final report is concordant with preliminary interpretation by [facility] MDM Narrative Medical decision making narrative: Patient with no significant chronic medical history presents with severe chest pain that started at rest and radiated to his back. He states it was most int ense at onset and had improved on its own significantly early in the visit. Given his lack of classic findings for cardiac ischemia and sudden onset with maximal intensity at onset along with radiation to the back diagnoses such as cardiac ischemia, pulmonary embolism and also dissection are considered. CT angiogram of chest abdomen and pelvis ordered, soon after he returned from imaging it was noted that his troponin was critically elevated, at that point patient is still having some pain, morphine ordered and heparin drip ordered. Patient signed out to Dr. Dhillon for final disposition, patient will likely require transfer to facility with in-house cardiology for further evaluation, treatment and stabilization of his condition Dr Dhillon: Received turned over. Reviewed patient's history and physical and workup up to this. He is currently on a heparin drip. He would had 1 further episode of chest discomfort without any ischemic changes on his EKG during that time. It resolved with morphine. Patient has been in sinus rhythm. Repeat troponin shows no change from original. There continues to be no bed availability for NSTEMI. Patient asked to be discharged home. I had a d iscussion with him about this. We discussed risks and benefits and the need for further risk stratification testing to include iliac catheterization. We did discuss the elevation in the troponin. Patient stated that he would stay and then a short time later I was called back into the room again with him stating that he would get would like to be discharged home. He is alert oriented x3. GCS of 15. Not clinically intoxicated. In my opinion has capacity to make decisions. His family was at bedside for these discussions. We did discuss the concern that we have that he is having a heart attack. We discussed the risks of going home. We discussed the risks that he potentially could worsen and also have a even larger heart attack (STEMI) or even . He expressed understanding of this. He did sign against medical advice paperwork. Nursing was at bedside. He stated that he does have a follow-up with his primary doctor in the next couple days already scheduled. He was given return precautions. <Arturo Hodge, - Last Filed: 01/17/23 14:18> Lab Data Labs: Lab Results 01/16/23 01/16/23 01/16/23 Range/Units 05:55 05:55 05:55 WBC 8.9 (4.5-11.0) X10^3/uL RBC 5.27 (4.5-5.9) X10^6/uL Hgb 17.0 (13.5-17.5) g/dL Hct 49.2 (41-53) % MCV 93.4 (80-100) fL MCH 32.3 (26-34) PG MCHC 34.6 (30-36) % RDW 13.1 (11.6-14.8) % Plt Count 215 (150-400) X10^3/uL Neut % (Auto) 64.2 (50-75) % Lymph % (Auto) 23.7 L (25-40) % [place] % (Auto) 7.2 (3-14) % Eos % (Auto) 4.0 (2-4) % Baso % (Auto) 0.9 (0-2) % Neut # (Auto) 5700 (5945-9535) /uL Lymph # (Auto) 2100 (0920-1746) /uL [place] # (Auto) 600 (0-900) /uL Eos # (Auto) 400 (0-450) /uL Baso # (Auto) 100 (0-100) /uL APTT (26-36) SECONDS D-Dimer 309 (<500) ng/ml Sodium 138 (137-145) mmol/L Potassium 4.1 (3.4-5.1) mmol/L Chloride 101 (98-107) mmol/L Carbon Dioxide 32 (22-32) mmol/L BUN 14 (9-20) mg/dL Creatinine 1.15 (0.66-1.25) mg/dL Estimated GFR > 60 (>60) mL/min BUN/Creatinine Ratio 12.2 (6-22) Glucose 120 H (70-100) mg/dL Calcium 9.2 (8.4-10.2) mg/dL Total Bilirubin 0.4 (0.2-1.3) mg/dL AST 38 (17-59) IU/L ALT 32 (<50) IU/L Alkaline Phosphatase 86 (38-126) U/L Total Creatine Kinase 213 H (55-170) U/L CK-MB (CK-2) 2.90 H (<2.37) ng/mL CK-MB (CK-2) Rel Index 1.4 L (1.5-5.0) % Troponin I 0.279 H* (0.01-0.034) ng/mL Total Protein 6.9 (6.3-8.2) g/dL Albumin 4.0 (3.5-5.0) g/dL Globulin 2.9 (1.7-4.1) g/dL Albumin/Globulin Ratio 1.4 (1.0-2.8) Lipase 433 H (23-300) U/L SARS-CoV-2 (PCR) (Negative) 01/16/23 01/16/23 01/16/23 Range/Units 05:55 07:40 10:00 WBC (4.5-11.0) X10^3/uL RBC (4.5-5.9) X10^6/uL Hgb (13.5-17.5) g/dL Hct (41-53) % MCV (80-100) fL MCH (26-34) PG MCHC (30-36) % RDW (11.6-14.8) % Plt Count (150-400) X10^3/uL Neut % (Auto) (50-75) % Lymph % (Auto) (25-40) % [place] % (Auto) (3-14) % Eos % (Auto) (2-4) % Baso % (Auto) (0-2) % Neut # (Auto) (4053-4057) /uL Lymph # (Auto) (8749-7634) /uL [place] # (Auto) (0-900) /uL Eos # (Auto) (0-450) /uL Baso # (Auto) (0-100) /uL APTT 31 (26-36) SECONDS D-Dimer (<500) ng/ml Sodium (137-145) mmol/L Potassium (3.4-5.1) mmol/L Chloride (98-107) mmol/L Carbon Dioxide (22-32) mmol/L BUN (9-20) mg/dL Creatinine (0.66-1.25) mg/dL Estimated GFR (>60) mL/min BUN/Creatinine Ratio (6-22) Glucose (70-100) mg/dL Calcium (8.4-10.2) mg/dL Total Bilirubin (0.2-1.3) mg/dL AST (17-59) IU/L ALT (<50) IU/L Alkaline Phosphatase (38-126) U/L Total Creatine Kinase 235 H (55-170) U/L CK-MB (CK-2) 3.83 H (<2.37) ng/mL CK-MB (CK-2) Rel Index 1.6 (1.5-5.0) % Troponin I 0.297 H* (0.01-0.034) ng/mL Total Protein (6.3-8.2) g/dL Albumin (3.5-5.0) g/dL Globulin (1.7-4.1) g/dL Albumin/Globulin Ratio (1.0-2.8) Lipase (23-300) U/L SARS-CoV-2 (PCR) Negative (Negative) MDM Narrative Medical decision making narrative: Patient with no significant chronic medical history presents with severe chest pain that started at rest and radiated to his back. He states it was most intense at onset and had improved on its own significantly early in the visit. Given his lack of classic findings for cardiac ischemia and sudden onset with maximal intensity at onset along with radiation to the back diagnoses such as cardiac ischemia, pulmonary embolism and also dissection are considered. CT angiogram of chest abdomen and pelvis ordered, soon after he returned from imaging it was noted that his troponin was critically elevated, at that point patient is still having some pain, morphine ordered and heparin drip ordered. Patient signed out to Dr. Dhillon for final disposition, patient will likely require transfer to facility with in-house cardiology for further evaluation, treatment and stabilization of his condition Discharge Plan Departure Patient Disposition: Left Against Medical Advice Clinical Impression: Non-ST elevation myocardial infarction (NSTEMI) Activity Restrictions/Additional Instructions: Despite our discussion of the risks and benefits to include the fact that you are having a heart attack and that by going home you potentially could have worsening symptoms or even you decided to be discharged home to follow-up with your primary doctor. I recommend that you continue any medications as directed and contact your primary doctor for a follow-up. You can return to the emergency department at any point if you change your mind. Stand Alone Forms: Against Medical Advice
--- NOTE | 2023-01-16 05:56 | DI.CT.S_ITS ---
PROCEDURE: CT ANGIO CHEST ABDOMEN PELVIS INDICATIONS: severe chest pain, radiation to the back TECHNIQUE: Precontrast 5 mm thick sections acquired from the lung apices to the iliac crests. After the administration of intravenous contrast, 2.5 mm thick sections again acquired from the lung apices to the iliac crests. Maximum intensity projection (MIP) oblique sagittal and coronal reformats were then acquired. For radiation dose reduction, the following was used: automated exposure control. COMPARISON: None. FINDINGS: Dictated by: Dylan De La Cruz M.D. on 01/16/2023 at 8:36 Approved by: Dylan De La Cruz M.D. on 01/16/2023 at 8:37
--- NOTE | 2023-01-16 05:56 | DI.RAD.S_ITS ---
PROCEDURE: XR CHEST 1V INDICATIONS: chest pain TECHNIQUE: One view of the chest was acquired. COMPARISON: [facility], CR, XR CHEST 1V, 08/13/2021, 11:55. FINDINGS: Surgical changes and devices: None. Lungs and pleura: Lungs are clear. No pleural effusions or pneumothorax. Mediastinum: Mediastinal contours appear normal. Heart size is normal. Bones and chest wall: No suspicious bony lesions. Overlying soft tissues appear unremarkable. IMPRESSION: No acute cardiopulmonary disease. No significant discrepancy with the hourly shift manager radiology preliminary report. Dictated by: Liberty Pickard M.D. on 01/16/2023 at 8:10 Approved by: Liberty Pickard M.D. on 01/16/2023 at 8:11
[2023-01-16 06:10] LABS: Add Manual Diff / Slide Review NO; Basophils Absolute Auto 100 /uL (0-100); Basophils Percent Auto 0.9 % (0-2); Eosinophils Absolute Auto 400 /uL (0-450); Hematocrit 49.2 % (41-53); Lymphocytes Absolute Auto 2100 /uL (1100-4500); Lymphocytes Percent Auto 23.7 % (25-40); Mean Corpuscular HGB Conc 34.6 % (30-36); Mean Corpuscular Hemoglobin 32.3 PG (26-34); Mean Corpuscular Volume 93.4 fL (80-100); Monocytes Absolute Auto 600 /uL (0-900); Monocytes Percent Auto 7.2 % (3-14); Neutrophils Absolute Auto 5700 /uL (1500-7000); Neutrophils Percent Auto 64.2 % (50-75); Platelet Count 215 X10^3/uL (150-400); Red Blood Cell Count 5.27 X10^6/uL (4.5-5.9); Red Cell Distribution Width 13.1 % (11.6-14.8); White Blood Cell Count 8.9 X10^3/uL (4.5-11.0)
[2023-01-16 06:12] LABS: D Dimer 309 ng/ml (<500)
[2023-01-16] MEDS: SODIUM CHLORIDE 0.9% 1,000 ML 1000 ML IV (06:14)
[2023-01-16] MEDS: ASPIRIN 81 MG CHEW TAB 324 MG PO (06:14)
[2023-01-16] MEDS: NITROGLYCERIN 0.4 MG SL TAB SL ×2 (06:14→06:34)
[2023-01-16 06:15] LABS: Alanine Aminotransferase 32 IU/L (<50); Albumin Globulin Ratio 1.4 (1.0-2.8); Alkaline Phosphatase 86 U/L (38-126); Aspartate Aminotransferase 38 IU/L (17-59); BUN Creatinine Ratio 12.2 (6-22); Bilirubin Total 0.4 mg/dL (0.2-1.3); Blood Urea Nitrogen 14 mg/dL (9-20); Calcium 9.2 mg/dL (8.4-10.2); Carbon Dioxide 32 mmol/L (22-32); Chloride 101 mmol/L (98-107); Creatine Kinase 213 U/L (55-170); Estimated Glomerular Filt Rate > 60 mL/min (>60); Globulin 2.9 g/dL (1.7-4.1); Glucose 120 mg/dL (70-100); HEMOLYSIS < 15 (0-50); Lipase 433 U/L (23-300); Potassium 4.1 mmol/L (3.4-5.1); Sodium 138 mmol/L (137-145); Total Protein 6.9 g/dL (6.3-8.2)
[2023-01-16 06:31] LABS: CKMB % Relative Index 1.4 % (1.5-5.0)
--- NOTE | 2023-01-16 06:45 | PC.NURSE ---
pt c/o worse pain ever, Dr Hodge notified and med ordered received and given, pt states the pain is coming in waves
[2023-01-16] MEDS: MORPHINE 4 MG/ML INJ IV ×2 (06:50→07:55)
[2023-01-16 07:02] LABS: Troponin I 0.279 ng/mL (0.01-0.034)
[2023-01-16 07:33] LABS: PTT Partial Thromboplastin Tim 31 SECONDS (26-36)
[2023-01-16] MEDS: ONDANSETRON 4 MG/2 ML INJ IV (07:38)
[2023-01-16] MEDS: HEPARIN 5,000 UNIT/ML VIAL 5000 UNIT IV (07:46)
[2023-01-16] MEDS: HEPARIN DRIP 25,000 UNIT/500 ML IV.SOLN 20 UNIT IV (07:46)
[2023-01-16 08:10] LABS: Creatine Kinase 235 U/L (55-170)
--- NOTE | 2023-01-16 08:25 | PC.NURSE ---
Patient moaning and clutching chest, states 9/10 pain with no relief from nitro x1 or morphine 4mg x1. He is standing in room. Requests pain and nausea meds. States pain is in center of chest and radiates through to the back. COmes and goes every few minutes at this intensity, subsides to 4/10 inbetween.
[2023-01-16 08:26] LABS: CKMB % Relative Index 1.6 % (1.5-5.0); Creatine Kinase MB 3.83 ng/mL (<2.37)
--- NOTE | 2023-01-16 08:26 | PC.NURSE ---
720 Dr. Dhillon made aware of patient's desire for pain and nausea meds.
--- NOTE | 2023-01-16 08:27 | PC.NURSE ---
Patient reports relief of pain after second dose of morphine. Sitting comfortably in bed talking with family members at bedside. His O2 saturations dip to 88% on Room air occasionally and then rise back up to normal. PLaced on 2L O2 via NC.
[2023-01-16 09:00] LABS: Troponin I 0.297 ng/mL (0.01-0.034)
[2023-01-16 10:40] LABS: COVID19 -Nasal RAPID Negative (Negative)
== END 2023-01-16 12:06 | disposition left against medical advice (07) ==
PROVIDERS: Emergency Medicine; Emergency Provider Emergency Medicine
DX: I21.4 Non-ST elevation (NSTEMI) myocardial infarction (principal); Z20.822 Contact with and (suspected) exposure to COVID-19
CPT/HCPCS: 36415; 71045; 71275; 74174; 80053; 82550; 82553; 83690; 84484; 85025; 85379; 85730; 87635; 93005; 93010; 96361; 96365; 96366; 96375; 96376; 99285; C9803; J1644; J2270; J2405; Q9967

== ENCOUNTER → 2024-06-21 08:04 | Outpatient (CLI) | payer OTHER, SELFPAY | PROVIDERS: Referring Provider Nurse Practitioner Family; Visit Provider Nurse Practitioner Family | DX: R30.0 Dysuria (principal) | CPT/HCPCS: 87086 ==

== ENCOUNTER 2025-01-04 06:31 | Emergency (ER) | payer OTHER, SELFPAY ==
[2025-01-04 06:36] VITALS: BP 183/99; PULSE 108; RESP 18; TEMP 37.3; O2SAT 95; BMI 28.7
--- NOTE | 2025-01-04 06:45 | DI.RAD.S_ITS ---
PROCEDURE: XR WRIST LT MIN 3V INDICATIONS: fall/pain/injury TECHNIQUE: 4 views of the wrist were acquired. COMPARISON: None. FINDINGS: Bones: No acute osseous fracture is seen radiographically. Degenerative changes noted at the distal radioulnar joint and to a lesser extent the 1st carpometacarpal joint. No suspicious bony lesions. Soft tissues: No suspicious soft tissue calcifications. Soft tissue edema surrounding the wrist. IMPRESSION: No acute osseous fracture is seen radiographically. Soft tissue edema is present. Wrist CT was subsequently performed showing a tiny minimally displaced triquetral fracture; please see the CT report for detailed findings. There is no significant discrepancy when compared to the overnight preliminary report. Approved by: Dillon Collins M.D. on 01/04/2025 at 8:48
--- NOTE | 2025-01-04 06:46 | DI.RAD.S_ITS ---
PROCEDURE: XR FOREARM LT 2V INDICATIONS: fall/pain/injury TECHNIQUE: 2 views of the forearm were acquired. COMPARISON: None. FINDINGS: Bones: No acute forearm fracture or dislocation. Degenerative changes are seen at the distal radioulnar joint. No suspicious bony lesions. Soft tissues: No suspicious soft tissue calcifications. IMPRESSION: No acute bony abnormality in the forearm. There is no significant discrepancy when compared to the overnight preliminary report. Approved by: Dillon Collins M.D. on 01/04/2025 at 8:49
--- NOTE | 2025-01-04 06:53 | PC.NURSE ---
pt tripped and fell last pm twisting his left hand and wrist while trying to catch his fall, pt [place] at a camp site and kept the arm iced and elevated during the night,
--- NOTE | 2025-01-04 07:30 | ED_ITS ---
HPI - Extremity Injury (Upper) General Chief Complaint: Extremity Injury, Upper Stated Complaint: Left wrist injury Time Seen by Provider: 01/04/25 07:12 Source: patient, RN notes reviewed and old records reviewed Mode of arrival: Ambulatory Limitations: no limitations History of Present Illness HPI narrative: 54-year-old male no reported medical issues has complaint of fall onto his left wrist last night. States he was at a cabin up in [place], [place] patient had turned off the lights turned to walk out but could not see tripped and fell onto a hard floor on his wrists sort of outstretched. Patient has pain in the wrist itself. Has pain with any sort of movement of the wrist. Does radiate up a little bit up towards the elbow. Patient denies any numbness or tingling. No weakness. Does hurt to flex and extend his fingers. He denies any other injuries. Denies hitting his head no neck or back pain. Denies any other symptoms. Patient states no daily medications. No known drug allergies. Related Data Previous Rx's Medication Instructions Recorded hydrocodone 5 mg-acetaminophen 325 1 tab PO Q6H PRN pain #14 tabs 01/04/25 mg tablet Allergies Allergy/AdvReac Type Severity Reaction Status Date / Time No Known Drug Allergies Allergy Verified 06/21/24 08:07 Review of Systems Review of Systems ROS Unobtainable: All systems reviewed & are unremarkable except as noted in HPI and below Patient History Medical History Smoker PTSD (post-traumatic stress disorder) Social History Smoking Status: Current every day smoker Smoking Status: Current every day smoker tobacco type: cigarettes alcohol intake frequency: a few times a week Exam Narrative Exam Narrative: GENERAL: Alert and oriented x three, male in mild distress HEENT: Head normocephalic, atraumatic, EOMI, pupils reactive, face symmetric, moist mucous membranes NECK: Supple, full range of motion CARDIOVASCULAR: Regular rate and rhythm without murmurs, rubs or gallops. RESPIRATORY: Breath sounds equal bilaterally, no wheezes rales or rhonchi. ABDOMEN: Soft, nontender. Normoactive bowel sounds all 4 quadrants. No guarding or rebound, rigidity, no mass : No CVA tenderness EXTREMITIES: Decreased range of motion at the left wrist. Patient has bony tenderness over the wrist itself. No other bony tenderness of the left upper extremity, no tenderness of the metacarpal bones or fingers. Has full range of motion of all 5 fingers with normal flexion, extension adduction and abduction. Cap refills less than 2 seconds with normal sensation throughout all 5 fingers. No bony tenderness over the forearm, elbow or upper arm. Patient has good range of motion at the shoulder as well., no clubbing or edema. Neurovascularly intact. No ecchymosis. NEUROLOGICAL: Cranial nerves II through XII grossly intact. Moving all extremities SKIN: Warm, dry, no petechiae, no rashes or lesions. Initial Vital Signs Initial Vital Signs: Vital Signs Temperature 99.2 F 01/04/25 06:36 Pulse Rate 108 H 01/04/25 06:36 Respiratory Rate 18 01/04/25 06:36 Blood Pressure 183/99 H 01/04/25 06:36 Pulse Oximetry 95 01/04/25 06:36 Oxygen Delivery Method Room Air 01/04/25 06:36 Course Orders Ordered: ED Orders 01/04/25 06:45 XR wrist LT min 3V Stat 01/04/25 06:46 XR forearm LT 2V Stat 01/04/25 08:00 CT UE LT wo con Stat Discontinued Medications Hydrocodone Bitart/Acetaminophen (Hydrocodone/Acet 5/325 Tablet) 1 tab PO NOW ONE Stop: 01/04/25 07:43 Last Admin: 01/04/25 08:01 Dose: 1 tab Documented By: ANNI Vital Signs Vital signs: Vital Signs - 8 hr 01/04/25 06:36 01/04/25 09:35 01/04/25 09:41 Temperature 99.2 F Pulse Rate 108 H 97 H 97 H Respiratory Rate 18 18 Blood Pressure 183/99 H 151/100 H 151/100 H Pulse Oximetry 95 94 Oxygen Delivery Method Room Air Room Air MDM - Extremity Injury (Upper) MDM Narrative Medical decision making narrative: L wrist xray formal read no acute osseous fracture noted soft tissue edema present in the wrist. L forearm xray no acute bony abnormality seen on formal report. CT imaging shows tiny minimally displaced avulsion type fracture of the dorsal aspect of the triquetrum no other osseous fracture seen scaphoid intact mild degenerative changes 1st carpometacarpal joint. Degenerative noted in the distal radioulnar joint. Moderate radiocarpal effusion. On exam patient has some tenderness over the wrist itself does have some swelling but no obvious deformity which patient also endorses. Patient was given oral pain medication. Splinted by nursing. Dr. Carter orthopedic surgery discussed at 0747, she will review images and callback. Dr. Carter reviewed images asked for CT of upper extremity/wrist. This was obtained re-contacted Dr. Carter who reviewed. Patient placed in sugartong, neurovascularly intact afterwards. Patient's report came back small avulsion fracture for triquetrum. No other fractures noted. Patient was updated on findings. Discussed return precautions all questions answered. Discharge Plan Departure Patient Disposition: Home Clinical Impression: Left wrist pain, Fracture, triquetral bone Instructions: DI for Wrist Fracture Activity Restrictions/Additional Instructions: Follow up with Orthopedic surgery in the next week, call Monday morning to set up an appointment. Contact is included below. There is a small avulsion fracture at the triquetrum. You can take [place] 1-2 tablets every 6 hours as needed for pain. This medication can make you sleepy do not drive, perform hazardous activities or make any major decisions while taking it. This medication will make you constipated please take a stool softener once to twice daily until stools are soft and regular. Prescription sent to [facility] in [place]. Splint Care: Keep splint clean and dry. Elevated affected body part to decrease swelling. OK to use ice pack on the affected body part. Use for 15-20 minutes each time, for 5-6x per day. If you develop worsening pain, numbness, tingling, discoloration of the affected body part, loosen the splint by loosening the IGGY wrap, and either see your doctor for an urgent re-assessment, or return to the Emergency Department. Return to the Emergency Department for any new or worsening symptoms. Prescriptions: New hydrocodone-acetaminophen 5-325 mg tablet 1 tab PO Q6H PRN (Reason: pain) Qty: 14 0RF Referrals: Miscellaneous,DoctorMD [Primary Care Provider] - Vira Carter MD [Physician] - Stand Alone Forms: Patient Portal/API/Survey
--- NOTE | 2025-01-04 08:00 | DI.CT.S_ITS ---
PROCEDURE: CT UE LT WO CON INDICATIONS: L wrist TECHNIQUE: Noncontrast 1 mm axial sections acquired through the carpal bones, with coronal and sagittal reformats. For radiation dose reduction, the following was used: automated exposure control, adjustment of mA and/or kV according to patient size. COMPARISON: [facility], CR, XR FOREARM LT 2V, 01/04/2025, 6:45. [facility], CR, XR WRIST LT MIN 3V, 01/04/2025, 6:45. FINDINGS: Image quality: Excellent. Bones: Tiny minimally displaced avulsion type fracture at the dorsal aspect of the triquetrum. No additional osseous fracture is seen. Scaphoid is intact. Mild degenerative changes at the 1st carpometacarpal joint. Degenerative changes also noted at the distal radioulnar joint. Soft tissues: Moderate radiocarpal effusion. The tendons, ligaments, and articular cartilages are not well evaluated with CT. The visualized musculature is normal in bulk. IMPRESSION: Tiny minimally displaced avulsion type fracture at the dorsal aspect of the triquetrum. Approved by: Dillon Collins M.D. on 01/04/2025 at 8:46
[2025-01-04] MEDS: HYDROCODONE/ACET 5/325 TABLET 1 TAB PO (08:01)
[2025-01-04 09:35] VITALS: BP 151/100; PULSE 97; RESP 18; O2SAT 94
[2025-01-04 09:41] VITALS: BP 151/100; PULSE 97
== END 2025-01-04 09:42 | disposition home or self-care (01) ==
PROVIDERS: Emergency Provider Emergency Medicine
DX: S62.112A Displaced fracture of triquetrum [cuneiform] bone, left wrist, initial encounter for closed fracture (principal); M25.532 Pain in left wrist; W01.0XXA Fall on same level from slipping, tripping and stumbling without subsequent striking against object, initial encounter; F17.210 Nicotine dependence, cigarettes, uncomplicated
CPT/HCPCS: 29125; 73090; 73110; 73200; 99284